=== PATIENT | female | born 2000 | race Caucasian/White ===

== ENCOUNTER 2019-08-26 19:16 | Emergency (ER) | payer MEDICAID, OTHER ==
[~2019-08-26] VITALS: Ht 170.2 cm; Wt 100.0 kg
[2019-08-26 19:27] VITALS: BP 121/79
== END 2019-08-26 20:39 | disposition home or self-care (01) ==
LOC: ER 19:16
DX: F41.0 Panic disorder [episodic paroxysmal anxiety] (principal)
CPT/HCPCS: 81025; 99283